=== PATIENT | female | born 1990 | race Two or more races ===

== ENCOUNTER 2021-08-24 00:28 | Emergency (ER) | payer SELFPAY ==
[~2021-08-24] VITALS: Ht 170.2 cm; Wt 60.1 kg
[2021-08-24 00:44] VITALS: BP 151/97
[2021-08-24] MEDS ORDERED: OLANZapine 2.5MG tablet PO STA (01:44)
== END 2021-08-24 02:45 | disposition home or self-care (01) ==
LOC: ER 00:29
DX: F41.9 Anxiety disorder, unspecified (principal); F31.9 Bipolar disorder, unspecified; Z72.89 Other problems related to lifestyle; Z56.0 Unemployment, unspecified
CPT/HCPCS: 99283